=== PATIENT | male | born 1960 | race Caucasian/White ===

== ENCOUNTER 2020-07-16 06:05 | Day surgery (SDC) | payer OTHER ==
[~2020-07-16 06:05] MED LIST: CRESTOR20 MG PO; HYDROCHLOROTHIA25 MG PO; NIFE60TA3 PO; TOPROL XL50 M1 PO
== END 2020-07-16 13:40 | disposition home or self-care (01) ==
LOC: CIR.AMB 06:05
PROVIDERS: ATTEND Surgery
DX: K43.6 Other and unspecified ventral hernia with obstruction, without gangrene (principal); Z20.828 Contact with and (suspected) exposure to other viral communicable diseases